=== PATIENT | female | born 1970 | race Caucasian/White ===

== ENCOUNTER 2017-02-09 06:03 | Inpatient (IN) | payer OTHER ==
[~2017-02-09] VITALS: Ht 172.7 cm; Wt 73.5 kg
[2017-02-09] MEDS ORDERED: HYDR-3965 PO (06:15)
[2017-02-09] MEDS ORDERED: BUPR100 PO (06:15)
[2017-02-09] MEDS ORDERED: ONDANSETRON HCL 4 MG TABLET PO ONE (06:30)
[2017-02-09 06:37] LABS: BASOPHILS # (AUTO) 0.03 K/uL (0.00-0.20); BASOPHILS % (AUTO) 0.4 % (0.0-2.0); EOSINOPHILS # (AUTO) 0.07 K/uL (0.00-0.70); EOSINOPHILS % (AUTO) 0.79 % (1.0-6.0); HEMATOCRIT 42.7 % (36-46); HEMOGLOBIN 14.5 g/dL (12.0-16.0); LYMPHOCYTES # (AUTO) 2.5 K/uL (1.0-4.8); LYMPHOCYTES % (AUTO) 28.9 % (22.0-44.0); MEAN CORPUSCULAR VOLUME 97 fL (80-100); MONOCYTES # (AUTO) 0.6 K/uL (0.1-1.0); NEUTROPHILS # (AUTO) 5.5 K/uL (1.8-7.7); PLATELET COUNT (AUTO) 270 K/uL (150-450); RED BLOOD CELL COUNT(AUTO) 4.41 MIL/uL (4.00-5.20); RED CELL DISTRIBUTION WIDTH 13.5 % (11.5-14.5); WHITE BLOOD COUNT (AUTO) 8.7 K/uL (4.5-11.0)
[2017-02-09 06:43] LABS: ANION GAP 12 mmol/L (8-16); CALCIUM, TOTAL 8.1 mg/dL (8.8-10.5); CARBON DIOXIDE 23 mmol/L (22-29); CHLORIDE 106 mmol/L (98-107); CREATININE 0.69 mg/dL (0.60-1.30); GLOMERULAR FILTR. RATE CALC > 60 mL/min (>60); POTASSIUM 3.6 mmol/L (3.5-5.1); SODIUM SERUM 141 mmol/L (136-145); UREA NITROGEN, BLOOD 16 mg/dL (7-18)
[2017-02-09 06:46] LABS: SALICYLATE 5.6 mg/dL (2.8-20.0)
[2017-02-09 06:49] LABS: ACETAMINOPHEN 12 mcg/mL (10-30); ALANINE AMINOTRANSFERASE 23 U/L (12-78); ALBUMIN 3.8 g/dL (3.4-5.0); ASPARTATE AMINOTRANSFERASE 13 U/L (15-37); BILIRUBIN,TOTAL 0.2 mg/dL (0.1-1.0)
[2017-02-09] MEDS ORDERED: METOCLOPRAMIDE HCL 5 MG/ML 2 ML VIAL IM ONE (09:45)
[2017-02-09] MEDS ORDERED: LORazepam 2 MG/ML VIAL IM ONE (09:45)
[2017-02-09] MEDS ORDERED: MAG HYDROX/AL HYDROX/SIMETH ES 30 ML SUSPENSION UDCUP PO PRN (11:00)
[2017-02-09] MEDS ORDERED: ACETAMINOPHEN 325 MG TABLET PO PRN (11:00)
[2017-02-09] MEDS ORDERED: HALOPERIDOL 5 MG TABLET PO PRN (11:00)
[2017-02-09] MEDS ORDERED: LORazepam 2 MG TABLET PO PRN (11:00)
[2017-02-09] MEDS ORDERED: PROMETHAZINE HCL 25 MG TABLET PO PRN (11:00)
[2017-02-09] MEDS ORDERED: ZOLPIDEM TARTRATE 10 MG TABLET PO PRN (11:00)
[2017-02-09] MEDS ORDERED: MAGNESIUM HYDROXIDE SUSPENSION 30 ML UDCUP PO PRN (11:00)
[2017-02-09 11:10] VITALS: BP 122/70
[2017-02-09 20:51] VITALS: BP 146/92
[2017-02-10 02:00] VITALS: BP 136/89
[2017-02-10 09:43] VITALS: BP 147/84
[2017-02-10] MEDS ORDERED: MIRTAZAPINE 15 MG TABLET PO SCH (21:00)
[2017-02-10 21:43] VITALS: BP 149/81
[2017-02-10] MEDS ORDERED: MIRT15 PO (23:15)
[2017-02-11 08:19] VITALS: BP 164/108
== END 2017-02-11 12:10 | disposition home or self-care (01) | DRG 885 ==
LOC: EMS 06:05 → 3EI 10:40 → EDBD 10:40 → 3EI 02-10 13:30
PROVIDERS: ADMIT Psychiatry & Neurology Psychiatry; ATTEND Psychiatry & Neurology Psychiatry
DX: F33.2 Major depressive disorder, recurrent severe without psychotic features (principal); T43.292A Poisoning by other antidepressants, intentional self-harm, initial encounter; T39.1X2A Poisoning by 4-Aminophenol derivatives, intentional self-harm, initial encounter; G43.909 Migraine, unspecified, not intractable, without status migrainosus; F41.9 Anxiety disorder, unspecified; G89.29 Other chronic pain; M54.9 Dorsalgia, unspecified; M79.7 Fibromyalgia; F17.200 Nicotine dependence, unspecified, uncomplicated; Z88.6 Allergy status to analgesic agent; Z79.899 Other long term (current) drug therapy; Z72.89 Other problems related to lifestyle; Y93.89 Activity, other specified; Y92.89 Other specified places as the place of occurrence of the external cause; Y99.8 Other external cause status
CPT/HCPCS: 96372; 99285; G0480; G0481; J2060; J2765; Q0162

== ENCOUNTER 2022-03-16 21:10 | Emergency (ER) | payer OTHER ==
[~2022-03-16] VITALS: Ht 175.3 cm; Wt 77.3 kg
[~2022-03-16 21:10] MED LIST: MIRT-89 PO
[2022-03-16] MEDS ORDERED: BUPR-344 PO (22:03)
[2022-03-16] MEDS ORDERED: METO25XL PO (22:03)
[2022-03-16] MEDS ORDERED: HYDR-4769 PO (22:03)
[2022-03-16] MEDS ORDERED: MethylPREDNISolone SOD SUCC 125 MG/2 ML VIAL IVP ONE (22:15)
[2022-03-16] MEDS ORDERED: FAMOTIDINE 10 MG/ML 2 ML VIAL IVP ONE (22:15)
[2022-03-16] MEDS ORDERED: PRED-554 PO (23:36)
[2022-03-16] MEDS ORDERED: EPIN0.3P3 IM (23:36)
[2022-03-16] MEDS ORDERED: DIPH25CA85 PO (23:36)
[2022-03-16] MEDS ORDERED: CLIN300C58 PO (23:36)
[2022-03-17 00:02] VITALS: BP 135/72
== END 2022-03-17 06:30 | disposition home or self-care (01) ==
LOC: EMS 21:35
DX: L50.9 Urticaria, unspecified (principal); R11.2 Nausea with vomiting, unspecified; R19.7 Diarrhea, unspecified; R10.9 Unspecified abdominal pain; T36.0X5A Adverse effect of penicillins, initial encounter; F32.A Depression, unspecified; I10 Essential (primary) hypertension; M79.7 Fibromyalgia; M19.90 Unspecified osteoarthritis, unspecified site; F17.210 Nicotine dependence, cigarettes, uncomplicated; F12.90 Cannabis use, unspecified, uncomplicated; Z85.828 Personal history of other malignant neoplasm of skin; Z87.39 Personal history of other diseases of the musculoskeletal system and connective tissue; Z88.1 Allergy status to other antibiotic agents; Z91.018 Allergy to other foods; Z88.8 Allergy status to other drugs, medicaments and biological substances; Y92.89 Other specified places as the place of occurrence of the external cause
CPT/HCPCS: 96374; 96375; 99284; J2930; J3490